=== PATIENT | male | born 1970 | race Caucasian/White ===

== ENCOUNTER 2016-12-02 10:58 | Emergency (ER) | payer OTHER ==
[~2016-12-02 10:58] MED LIST: ASPIR 8181 MG PO; OMEPRAZOLE PO
[2016-12-02] MEDS ORDERED: XARELTO20 M1 PO (11:01)
[2016-12-02] MEDS ORDERED: PENICILLIN V P250 M1 PO (11:02)
== END 2016-12-02 12:16 ==
LOC: EDMED 10:58
PROC: 0HQFXZZ Repair Right Hand Skin, External Approach (ICD-10-PCS; principal; 2016-12-02)
DX: S61.210A Laceration without foreign body of right index finger without damage to nail, initial encounter (principal); K21.9 Gastro-esophageal reflux disease without esophagitis; W45.8XXA Other foreign body or object entering through skin, initial encounter; Y92.019 Unspecified place in single-family (private) house as the place of occurrence of the external cause; Z23 Encounter for immunization; Z79.899 Other long term (current) drug therapy